=== PATIENT | female | born 1955 ===

== ENCOUNTER 2018-07-18 22:12 | Emergency (ER) | payer MEDICARE ==
[2018-07-18] MEDS ORDERED: TYLENOL ONE (22:26)
--- NOTE | 2018-07-19 01:24 | Emergency Department Report ---
ED Lower Extremity HPI - General Chief Complaint: Extremity Injury, Lower Stated Complaint: RIGHT KNEE PAIN Source: patient Mode of arrival: Ambulatory Limitations: No Limitations, Physical Limitation - History of Present Illness Initial Comments: This is a 63-year-old -Citizen Of [place] female who presents with right knee pain for one and a half months. Past medical history of diabetes and hypertension. Patient states she was diagnosed with a ligament tear right knee. She denies recent injury. Patient states there is swelling and burning anterior knee. Patient also reports a recent MRI of right knee which she brought a copy with her from orthopedic office. She has an appointment on Sunday with the orthopedic surgeon. Patient states pain is so severe Tylenol was no longer helping. She is requesting pain control. MD Complaint: knee injury (right) Onset/Timin -: month(s) Injury: Knee: Right Type of Injury: unknown Place: home Severity: severe Severity scale (0 -10): 10 Improves With: nothing Worsens With: weight bearing, movement Context: walking Associated Symptoms: swelling, able to partially bear weight. denies: numbness, tingling Treatments Prior to Arrival: NSAIDS - Related Data Previous Rx's Medication Instructions Recorded Last Taken Type Naproxen [Naprosyn] 500 mg PO TID #20 tablet 07/19/18 Unknown Rx Tramadol HCl [Ultram] 50 mg PO Q6H PRN #12 tablet 07/19/18 Unknown Rx Allergies Allergy/AdvReac Type Severity Reaction Status Date / Time No Known Allergies Allergy Unverified 07/18/18 22:17 ED Review of Systems ROS: Stated complaint: RIGHT KNEE PAIN Other details as noted in HPI Constitutional: denies: chills, fever Respiratory: denies: cough, shortness of breath, wheezing Cardiovascular: denies: chest pain, palpitations Gastrointestinal: denies: abdominal pain, nausea, diarrhea Musculoskeletal: arthralgia (right knee pain). denies: back pain, joint swelling Skin: denies: rash, lesions Neurological: denies: headache, weakness, paresthesias Psychiatric: denies: anxiety, depression ED Past Medical Hx - Past Medical History Previous Medical History?: Yes Hx Hypertension: Yes Hx Diabetes: Yes Additional medical history: Right Knee Ligament tears, - Surgical History Past Surgical History?: Yes Additional Surgical History: Back Surgery - Social History Smoking Status: Never Smoker Substance Use Type: None - Medications Home Medications: Home Medications Medication Instructions Recorded Confirmed Last Taken Type Naproxen [Naprosyn] 500 mg PO TID #20 tablet 07/19/18 Unknown Rx Tramadol HCl [Ultram] 50 mg PO Q6H PRN #12 tablet 07/19/18 Unknown Rx ED Physical Exam - General Limitations: No Limitations, Physical Limitation General appearance: alert, in no apparent distress, obese - Respiratory Respiratory exam: Present: normal lung sounds bilaterally. Absent: respiratory distress - Cardiovascular Cardiovascular Exam: Present: regular rate, normal rhythm. Absent: systolic murmur, diastolic murmur, rubs, gallop - GI/Abdominal GI/Abdominal exam: Present: soft, normal bowel sounds - Expanded Lower Extremity Exam Right Hip exam: Present: normal inspection, full ROM Upper Leg exam: Present: normal inspection, full ROM Knee exam: Present: tenderness, pain w/ pronation/supination, posterior draw sign. Absent: full ROM, swelling, abrasion, laceration, ecchymosis, deformity, effusion, full knee extension Lower Leg exam: Present: normal inspection, full ROM Ankle exam: Present: normal inspection, full ROM Foot/Toe exam: Present: normal inspection, full ROM Neuro vascular tendon exam: Present: no vascular compromise Gait: Positive: observed and limited by pain - Neurological Exam Neurological exam: Present: alert, oriented X3 - Psychiatric Psychiatric exam: Present: normal affect, normal mood - Skin Skin exam: Present: warm, dry, intact, normal color. Absent: rash ED Course Vital Signs 07/18/18 22:17 Temperature 98.5 F Pulse Rate 86 Respiratory 16 Rate Blood Pressure 171/89 O2 Sat by Pulse 99 Oximetry ED Lower Extremity MDM - Medical Decision Making Patient was examined by me. Vitals are normal and patient is in no acute distress. Reviewed MRI of the right knee. Impression TEAR posterior horn medial meniscus. Macerated tear of the anterior horn and body of lateral meniscus. 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 Start t ramadol and naproxen. Plan discussed with patient to discharge home and treat outpatient. Follow-up with her orthopedic surgeon on Sunday. Patient discharged home in stable condition. Follow up with PCP in 2-3 days. Critical care attestation.: If time is entered above; I have spent that time in minutes in the direct care of this critically ill patient, excluding procedure time. ED Disposition Clinical Impression: Right medial knee pain Meniscal injury Qualifiers: Encounter type: initial encounter Laterality: right Qualified Code(s): S83.8X1A - Sprain of other specified parts of right knee, initial encounter Disposition: TO HOME OR SELFCARE Is pt being admited?: No Does the pt Need Aspirin: No Condition: Stable Instructions: Arthralgia (ED), Anterior Cruciate Ligament Injury (ED) Additional Instructions: Follow-up with the orthopedic surgeon. Prescriptions: Naproxen [Naprosyn] 500 mg PO TID #20 tablet Tramadol HCl [Ultram] 50 mg PO Q6H PRN #12 tablet PRN Reason: Pain , Severe (7-10) Referrals: JUDSON ZAVALA MD [Staff Physician] - 3-5 Days [facility] [Provider Group] - 3-5 Days WEST GUTIERREZ MD [Primary Care Provider] - 3-5 Days Time of Disposition: 02:10
[2018-07-19 02:24] VITALS: BP 150/94
[2018-07-19] MEDS ORDERED: NORCO 5/325 PO ONE (02:33)
[2018-07-19] MEDS ORDERED: NORCO 5/325 ONE (02:36)
== END 2018-07-19 02:43 | disposition home or self-care (01) ==
LOC: ED 22:12
DX: S83.8X1A Sprain of other specified parts of right knee, initial encounter (principal); I10 Essential (primary) hypertension; E11.9 Type 2 diabetes mellitus without complications; X58.XXXA Exposure to other specified factors, initial encounter; Y93.89 Activity, other specified; Y92.89 Other specified places as the place of occurrence of the external cause; Y99.8 Other external cause status
CPT/HCPCS: 99282